=== PATIENT | male | born 1935 ===

== ENCOUNTER 2024-04-15 13:50 | Emergency (ER) | payer OTHER ==
[~2024-04-15] VITALS: Ht 177.8 cm; Wt 97.1 kg
[2024-04-15 14:17] LABS: HEMATOCRIT 36.8 % (42-54); MEAN CORPUSCULAR HEMOGLOBIN 32.1 pg (27.0-33.0); MEAN CORPUSCULAR HGB CONC 34.8 g/dL (32.0-36.0); MEAN CORPUSCULAR VOLUME 92.2 fL (79-99); RED BLOOD CELL COUNT(AUTO) 3.99 MIL/uL (4.50-6.20); RED CELL DISTRIBUTION WIDTH 13.6 % (11.0-15.5); WHITE BLOOD COUNT (AUTO) 6.6 K/uL (4.8-10.8)
[2024-04-15 14:21] LABS: CREATININE 1.1 mg/dL (0.5-1.3); POTASSIUM 4.2 mmol/L (3.5-5.1)
[2024-04-15 14:29] LABS: SARS-CoV-2, RNA, NAAT NEGATIVE SARS CoV-2 (NEGATIVE)
[2024-04-15 14:29] LABS: ADD UA MICROSCOPIC YES; APPEARANCE,URINE CLEAR (CLEAR); BILIRUBIN,URINE NEGATIVE (NEGATIVE); COLOR,URINE YELLOW (YELLOW); GLUCOSE, URINE (UA) 50 mg/dL (NEGATIVE); KETONES,URINE NEGATIVE (NEGATIVE); LEUKOCYTE ESTERASE ,URINE NEGATIVE Leu/uL (NEGATIVE); NITRATE,URINE NEGATIVE (NEGATIVE); OCCULT BLOOD,URINE SMALL (NEGATIVE); PH,URINE 5.5 (5.0-8.0); PROTEIN,URINE 50 mg/dL (NEGATIVE)
[2024-04-15 14:35] LABS: INFLUENZA TYPE A Negative For Type A (NEGATIVE); INFLUENZA TYPE B Negative For Type B (NEGATIVE)
[2024-04-15 14:35] LABS: MUCUS,URINE RARE LPF (None Seen); RBC,URINE 0-1 /HPF (0-1); SQUAMOUS EPITHELIAL CELL,UR RARE /HPF (0-2)
[2024-04-15] MEDS: acetaMINOPHEN 500 MG TABLET PO ONE (14:38)
[2024-04-15] MEDS: AZITHROMYCIN 500MG+NS 250ML 250 ML IVPB SCH (15:22)
[2024-04-15] MEDS: CEFTRIAXONE 2GM VIAL IVPB ONE (15:22)
[2024-04-15 16:40] VITALS: TEMP 98.8
[2024-04-15] MEDS ORDERED: LEVO-70 PO (16:54)
[2024-04-15] MEDS ORDERED: ONDA-243 PO (16:54)
[2024-04-15] MEDS ORDERED: ALBUHFA IH (16:54)
[2024-04-15 16:57] VITALS: BP 141/71; PULSE 67; RESP 18; TEMP 98.7; O2SAT 95
== END 2024-04-15 17:35 | disposition home or self-care (01) ==
LOC: EDH 13:50
DX: J18.9 Pneumonia, unspecified organism (principal); Z20.822 Contact with and (suspected) exposure to COVID-19; R11.0 Nausea; R50.9 Fever, unspecified; I10 Essential (primary) hypertension; E78.00 Pure hypercholesterolemia, unspecified
CPT/HCPCS: 99284; 96365; 71045; 87635; 80048; 85027; 87040; 87880; 87804 ×2; 83605; 81001; 36415; 96368; J0696; J0456